=== PATIENT | female | born 1970 | race Caucasian/White ===

== ENCOUNTER 2017-11-19 08:29 | Outpatient (CLI) | payer OTHER | END 2017-11-19 08:30 | disposition home or self-care (01) | LOC: BICULT 08:29 | PROVIDERS: ATTEND Family Medicine | DX: N32.9 Bladder disorder, unspecified (principal) | CPT/HCPCS: 76999 ==

== ENCOUNTER 2017-12-20 08:46 | Outpatient (CLI) | payer OTHER | END 2017-12-20 08:47 | disposition home or self-care (01) | LOC: BICCT 08:46 | PROVIDERS: ATTEND Family Medicine | DX: R22.2 Localized swelling, mass and lump, trunk (principal) | CPT/HCPCS: 72194 ==

== ENCOUNTER 2018-08-03 09:16 | Outpatient (CLI) | payer OTHER ==
--- NOTE | 2018-08-03 11:50 | MMO ---
BILATERAL MAMMOGRAMS: HISTORY: Screening mammography. COMPARISON: None available. Baseline study. FINDINGS: Extremely dense tissue has the appearance of fibroglandular tissue and hyperdense material consistent with the historically stated silicone injection material. Subglandular implants are in place and ap pear intact. Benign-appearing calcification right breast. No dominant mass or suspicious calcificat ions. The study was evaluated with the assistance of computer-aided detection. IMPRESSION: BI-RADS category 2. Benign findings. Suggest routine followup. BIRADS 2: Benign Finding(s) Routine annual screening mammography (for women over age 40) POS: CASE
== END 2018-08-03 09:17 | disposition home or self-care (01) ==
LOC: SCSMAMMO 09:16
PROVIDERS: ATTEND Family Medicine
DX: Z12.31 Encounter for screening mammogram for malignant neoplasm of breast (principal)
CPT/HCPCS: 77067

== ENCOUNTER 2018-09-30 08:53 | Outpatient (CLI) | payer OTHER ==
--- NOTE | 2018-09-30 11:55 | MRI ---
MRI LUMBAR SPINE: DATE: 09/30/2018. PROVIDED CLINICAL HISTORY: Low back pain. FINDINGS: Five lumbar vertebral bodies are assumed. Lumbar alignment appears normal. Vertebral body heights a ppear preserved. No focal concerning regional marrow signal abnormality is evident. The conus medul edwin is normal in signal and terminates at an appropriate level. Multiple parapelvic renal cysts ar e seen. The visualized extraspinal soft tissues appear otherwise unremarkable. At L1-2, there is no significant central canal or foraminal narrowing. At L2-3, there is no significant central canal or foraminal narrowing apparent. There is a broad-bas ed disk bulge with a superimposed right foraminal disk protrusion without apparent impingement on the exiting right L2 nerve root. At L3-4, there is a broad-based disk bulge and bilateral facet arthritis. There is mild bilateral fo raminal narrowing. There is an annular tear involving the foraminal portion of the disk left of midl ine. At L4-5, there is Schmorl's node formation at the superior end plate of L5. There is a broad-based d isk bulge and bilateral facet arthritis. There is no significant central canal stenosis apparent. T here is mild bilateral foraminal narrowing. At L5-S1, there is a broad-based disk bulge and bilateral facet arthritis without significant central canal or foraminal narrowing apparent. IMPRESSION: Lumbar disk and facet degenerative changes as described above. POS: TPC
== END 2018-09-30 08:54 | disposition home or self-care (01) ==
LOC: BICMRI 08:53
PROVIDERS: ATTEND Family Medicine
DX: M54.5 Low back pain (principal); M47.816 Spondylosis without myelopathy or radiculopathy, lumbar region; M51.36 Other intervertebral disc degeneration, lumbar region
CPT/HCPCS: 72148

== ENCOUNTER 2019-01-23 08:09 | Outpatient (CLI) | payer OTHER ==
--- NOTE | 2019-01-23 09:31 | MMO ---
Left Breast MAMMO Unilat Diag DDI LT+ЕКАТЕРИНА. CLINICAL HISTORY: Patient is 48 years old and is seen for diagnostic exam. The patient has the following family history of breast cancer: maternal aunt and paternal grandmother. The patient has no personal history of cancer. The patient has a history of bilateral Implants in 2016 - benign. VIEWS: The views performed were: left craniocaudal; left craniocaudal spot compression with tomosynthesis; left mediolateral oblique; left mediolateral; and left Implant displaced with tomosynthesis. FILMS COMPARED: The present examination has been compared to prior imaging studies performed at [facility] on 08/03/2018, and at [facility] on 01/23/2019. MAMMOGRAM FINDINGS: There are scattered fibroglandular densities. There are no mammographic abnormalities in the area of palpable concern. Probably benign findings are seen by ultrasound; please see that report. IMPRESSION: THERE ARE NO MAMMOGRAPHIC ABNORMALITIES IN THE AREA OF PALPABLE CONCERN. PROBABLY BENIGN FINDINGS ARE SEEN BY ULTRASOUND; PLEASE SEE THAT REPORT. FOLLOW-UP IN 6 MONTHS IS RECOMMENDED. THE RESULTS OF THIS EXAM WERE SENT TO THE PATIENT. ACR BI-RADS Category 3 - Probably benign finding - short interval follow-up suggested. [facility] will notify the patient of the need for additional imaging services. MAMMOGRAPHY NOTE: 1. A negative mammogram report should not delay a biopsy if a dominant of clinically suspicious mass is present. 2. Approximately 10% to 15% of breast cancers are not detected by mammography. 3. Adenosis and dense breasts may obscure an underlying neoplasm.
--- NOTE | 2019-01-23 11:15 | ULT ---
LIMITED LEFT BREAST ULTRASOUND: Date: 01/23/19 PROVIDED CLINICAL HISTORY: Left breast palpable abnormality. FINDINGS: Limited sonographic interrogation of the left breast was performed in the region of palpable concern. There is a circumscribed hypoechoic mass measuring approximately 9 mm at the 9 o'clock position of t he left breast. This demonstrates no internal flow and enhanced through-transmission, suggesting a co mplicated cyst. IMPRESSION: BI-RADS Category 3 - Probably benign findings. 6 month follow-up left breast ultrasound is recommende d. The facility will notify patient of need for additional imaging services. POS: OFF
== END 2019-01-23 08:10 | disposition home or self-care (01) ==
LOC: BICMAMMO 08:09
PROVIDERS: ATTEND Family Medicine
DX: N63.20 Unspecified lump in the left breast, unspecified quadrant (principal); Z80.3 Family history of malignant neoplasm of breast; Z98.82 Breast implant status
CPT/HCPCS: G0279